=== PATIENT | female | born 1950 | race Caucasian/White ===

== ENCOUNTER 2023-05-24 01:05 | Day surgery (SDC) | payer MEDICARE, SELFPAY ==
[2023-05-15 14:19] VITALS: BMI 23.4
--- NOTE | 2023-05-15 14:26 | PC.NURSE ---
Report to the Outpatient Waiting Room, entrance under the green pavilion located off [facility], at time 1215 on date 05/24/23. Planned Procedure Time: 1415. Time changes happen often and if your time is changed the preop area will call you the afternoon before. - You and your visitor will be asked to self-screen and do not enter if you have any COVID symptoms. - A mask is optional within the hospital at this time. Patients may have clear liquids (water, carbonated beverages, clear teas, apple juice) until 3 hours prior to surgery with a maximum of 20 ounces. - No food from midnight until time of surgery Take the following medications with a SIP of water the morning of surgery: NONE DO NOT STOP ANY OF YOUR OTHER PRESCRIPTION MEDICATIONS PRIOR TO SURGERY ?EXCEPT THE FOLLOWING Medications to discontinue per physician: VITAMINS Date to take last dose: 05/20/23 Please no make-up, nail montenegrin, hairspray, perfume, deodorant, or body powder the day of surgery. No jewelry (including any body piercings) or valuables the day of surgery, leave them at home. Please take a shower or bath the night before, or the morning of, surgery with an antibacterial soap. Wear comfortable, loose fitting clothing. - Jewelry must be removed prior to entering the operating room. Rings and piercings that are not removed may be cut off. - The hospital will not accept responsibility for valuables. - Please leave all valuables, including medications, at home the day of surgery. If you are going home after surgery, a licensed short haul driver must drive you home. - NO public transportation without another adult if you receive anesthesia. - We recommend that an adult stay with you for 24 hours following discharge. - We also recommend that you do not drive, make important decision, drink alcoholic beverages, or take any drugs that were not prescribed by your health care provider for at least 24 hours after your discharge time. Follow any additional instructions given to you from your surgeon. If you or anyone in your household have experienced Covid symptoms in the past week, please notify your surgeon or the nurse liaison at the phone number below for possible testing. Telephone instructions given to PT - PAUL MUELLER and asked if any additional questions and then verbalized understanding. Patient advised to call surgeon office or pre surgery nurse liaison [phone] if any additional questions.
--- NOTE | 2023-05-24 07:33 | PM.IMHP ---
H&P: HPI History of Present Illness Date/Time: 05/24/23 07:33 Chief Complaint: Abnormal ultrasound finding. Narrative: Patient with episode of postmenopausal bleeding. Has atrophic vagina and some bleeding from pessary. She had ultrasound which showed thickened endometrial stripe a fibroid. Unable to obtain office biopsy. Recommend D and C hysteroscopy and removal of lesion if present. Review of Systems Review of Systems: All systems reviewed & are unremarkable except as noted in HPI and below Cardiovascular: Cardiovascular: Reports no additional cardiovascular complaints, Denies chest pain and Denies dyspnea Respiratory: Respiratory: Reports no additional respiratory complaints and Denies dyspnea Gastrointestinal: Gastrointestinal: Reports abdominal pain, Denies change in bowel habits, Denies diarrhea, Denies nausea and Denies vomiting Genitourinary: Genitourinary: Reports pelvic pain Musculoskeletal: Musculoskeletal: Reports back pain Integumentary/Breasts: Skin/Breast: Reports system reviewed and no additional complaints, except as docu Neurologic: Reports system reviewed and no additional complaints, except as documented PMFSH Past Medical History Medical History History of breast cancer Woody's granulomatosis Surgical History Surgical History H/O breast reconstruction H/O section H/O mastectomy History of colonoscopy with polypectomy 2019 01/23/23 History of foot surgery History of thumb surgery 08/07/21 left thumb joint replacement. Family History Family History Mother Hypertension Cerebrovascular accident Sibling Family history of malignant neoplasm of breast in first degree relative Social History Social History Smoking status: Never smoker Second hand tobacco smoke exposure: No Alcohol intake: never Substance use: never Substance use type: does not use Lack of Transportation: No Lack of Food: Never True Current Housing: I Have Housing Concerned About Future Housing: No Difficulty Paying Gas/Electric Bills: No Difficulty Paying for Meds: No Currently Unemployed: YES Education: Bachelor's Degree Living arrangements: alone Occupation/Education: retired Gender identity (if verbalized by the patient): Female Sexual Orientation (if Verbalized by the Patient): Straight or Heterosexual Spiritual care concerns: No Meds Home Medications and Allergies Home Medications Medication Instructions Recorded Confirmed Type cetirizine 10 mg capsule (Zyrtec) 10 mg PO DAILY PRN Allergy Symptoms 04/25/21 05/15/23 History cholecalciferol (vitamin D3) 25 25 mcg PO DAILY 04/25/21 05/15/23 History mcg (1,000 unit) capsule leucovorin calcium 10 mg tablet 10 mg PO WEEKLY 04/25/21 05/15/23 History methotrexate (PF) 15 mg/0.6 mL 15 mg subcut WEEKLY 04/25/21 05/15/23 History subcutaneous syringe [id number] 120 mcg-lutein 1 tablet PO DAILY 04/25/21 05/15/23 History 150 mcg-herb 37.5 mg chewable tablet (Alive Women's 50 Plus Gummy) oxyquinoline 0.025 %-sodium lauryl See Rx Instructions vaginal 08/02/22 05/15/23 Rx sulfate 0.01 % vaginal gel .COMPLEX #113.4 grams (Trimo-Esposito Jelly) pantoprazole 40 mg granules 40 mg PO DAILY 08/02/22 05/15/23 History delayed-release for susp in packet (Protonix) Allergies Allergy/AdvReac Type Severity Reaction Status Date / Time fluconazole Allergy Mild Hives Verified 05/15/23 14:17 ciprofloxacin Allergy Unknown lip Verified 05/15/23 14:17 swelling iodine Allergy Unknown Rash Verified 05/15/23 14:17 Exam Const: Orientation/consciousness: oriented to person and oriented to place HENMT: Head: normal to inspection Eyes: General: appearance normal, both eyes
[2023-05-24] MEDS: ACETAMINOPHEN 500 MG TABLET 1000 MG PO (09:00)
[2023-05-24] MEDS: LACTATED RINGERS 1,000 ML 30 ML IV CONT (09:00)
--- NOTE | 2023-05-24 09:19 | WPDHPUPDATE1 ---
History and Physical Update Update Date/Time: 05/24/23 09:19 History and Physical has been reviewed, including an updated exam of the patient. There are NO changes in the patient's condition. Risks, benefits, and alternatives have been discussed and questions answered. Patient agrees to proceed with procedure.
[2023-05-24 09:25] VITALS: BP 160/83; PULSE 76; RESP 14; TEMP 37; O2SAT 99
--- NOTE | 2023-05-24 09:32 | WPDANESEPPF ---
Anes - Initial Pre Proc Eval Procedure: Operation Date: 05/24/23 09:45 Proposed Procedures p Hysteroscopy Dilation and Curettage with Removal of any Endometrial Lesions if Necessary - Bryant Moseley MD Date/Time: 05/24/23 09:32 Surgeon: Bryant Moseley MD Pre Op Diagnosis: thickened endometrial stripe Patient Data Age: 72 Gender: F Height: 1.57 m Weight: 56.6 kg Last Vital Signs Temp 37.0 C 05/24/23 09:25 Pulse 76 05/24/23 09:25 Resp 14 05/24/23 09:25 BP 160/83 H 05/24/23 09:25 Pulse Ox 99 05/24/23 09:25 O2 Del Method Room Air 05/24/23 09:25 Allergies Allergy/AdvReac Type Severity Reaction Status Date / Time fluconazole Allergy Mild Hives Verified 05/24/23 09:20 ciprofloxacin Allergy Unknown lip Verified 05/24/23 09:20 swelling iodine Allergy Unknown Rash Verified 05/24/23 09:20 Home Medications Medication Instructions Recorded Confirmed Type cetirizine 10 mg capsule (Zyrtec) 10 mg PO DAILY PRN Allergy Symptoms 04/25/21 05/15/23 History cholecalciferol (vitamin D3) 25 25 mcg PO DAILY 04/25/21 05/15/23 History mcg (1,000 unit) capsule leucovorin calcium 10 mg tablet 10 mg PO WEEKLY 04/25/21 05/15/23 History methotrexate (PF) 15 mg/0.6 mL 15 mg subcut WEEKLY 04/25/21 05/15/23 History subcutaneous syringe [id number] 120 mcg-lutein 1 tablet PO DAILY 04/25/21 05/15/23 History 150 mcg-herb 37.5 mg chewable tablet (Alive Women's 50 Plus Gummy) oxyquinoline 0.025 %-sodium lauryl See Rx Instructions vaginal 08/02/22 05/15/23 Rx sulfate 0.01 % vaginal gel .COMPLEX #113.4 grams (Trimo-Esposito Jelly) pantoprazole 40 mg granules 40 mg PO DAILY 08/02/22 05/15/23 History delayed-release for susp in packet (Protonix) Patient hx anesthesia problems: none Family hx anesthesia problems: post op nausea/vomiting Results Review: All pre-operative results and documents have been reviewed as part of the pre-operative evaluation. ON LICENSE OF [facility] Past Medical History Medical History History of breast cancer Woody's granulomatosis Surgical History Surgical History H/O breast reconstruction H/O section H/O mastectomy History of colonoscopy with polypectomy 2019 01/23/23 History of foot surgery History of thumb surgery 08/07/21 left thumb joint replacement. Family History Family History Mother Hypertension Cerebrovascular accident Sibling Family history of malignant neoplasm of breast in first degree relative Social History Social History Smoking status: Never smoker Second hand tobacco smoke exposure: No Alcohol intake: never Substance use: never Substance use type: does not use Lack of Transportation: No Lack of Food: Never True Current Housing: I Have Housing Concerned About Future Housing: No Difficulty Paying Gas/Electric Bills: No Difficulty Paying for Meds: No Currently Unemployed: YES Education: Bachelor's Degree Living arrangements: alone Occupation/Education: retired Gender identity (if verbalized by the patient): Female Sexual Orientation (if Verbalized by the Patient): Straight or Heterosexual Spiritual care concerns: No Anes - Eval Final PreProcedure Day of Procedure 05/24/23 09:32 Patient weight: normal Heart: regular rate and rhythm Lungs: clear to auscultation Airway: Mallampati scale class II Neurological: alert and oriented Last oral intake: >/= 8 hours ASA classification: III Emergent: no Anesthesia type and monitoring: general GIVS and standard monitoring Results Review: All pre-operative results and documents have been reviewed as part of the pre-operative evaluation. Informed Consent: The patient's anesthetic plan and its attendan
[2023-05-24] MEDS: ceFAZolin 2 GM/D5W 50 ML 2 GM/50 ML BAG IVPB (09:38)
[2023-05-24] MEDS: LIDOCAINE HCL 1% LOCAL INJ 20 ML VIAL 10 ML INFILTRATE (09:55)
[2023-05-24 10:01] VITALS: BP 137/72; PULSE 70; RESP 16; O2SAT 100
--- NOTE | 2023-05-24 10:06 | W.PM.PROC2 ---
Procedure Note - Detailed Date of Procedure 05/24/23 Pre-op Diagnosis thickened endometrial stripe Post-op Diagnosis Same Procedure Performed Diagnostic hysteroscopy and dilation and curettage and biopsy of endometrial tissue with Aveta. Surgeon Bryant Moseley MD Anesthesia MAC and Local Indications Postmenopausal bleeding thickened endometrial stripe Findings Uterus sounded to 5 cm. The uterine cavity was an area posterior uterine cavity that appeared slightly thickened hyperpigmented and some calcified areas. These areas were removed with the instrument. There was minimal tissue with curettage. Description of Procedure After informed consent was obtained patient was taken to the operating room and adequate IV sedation was administered she was placed in low lithotomy position and prepped and draped in sterile fashion attention was turned to the vagina the large cystocele was retracted with a Sandoval retractor the cervix was visualized and anterior cervix grasped with tenaculum. The ring forceps was placed on the posterior cervix. The cervix easily presented near the introitus. The uterus was sounded to 5 cm. Using hydrodilation with the hysteroscope the hysteroscope was inserted into the cavity the findings per above. The Aveta instrument was then used to remove the little areas of hyperpigmentation at the posterior uterus most of it felt calcified. Next a curettage was performed minimal tissue obtained. Tenaculum was removed hemostasis was noted. At the posterior vaginal at the cervicovaginal interface where the posterior portion of graves speculum was inserted, there was there was some bleeding which resolved with pressure. Estimated Blood Loss 5 Drains No Packing No Pathology Yes (Aveta shavings and endometrial curettings minimal) Complications No immediate complications Condition Stable Disposition Same day [facility] Billing Surgery - Charge Forward: Surgery Billing
[2023-05-24 10:30] VITALS: BP 139/77; PULSE 70; RESP 16
== END 2023-05-24 10:58 | disposition home or self-care (01) ==
PROVIDERS: Visit Provider Obstetrics & Gynecology
PROC: 0U5B8ZZ Destruction of Endometrium, Via Natural or Artificial Opening Endoscopic (ICD-10-PCS; CPT 58563; principal; 2023-05-24 09:45)
DX: N84.0 Polyp of corpus uteri (principal); N95.0 Postmenopausal bleeding; M31.30 Wegener's granulomatosis without renal involvement; Z85.3 Personal history of malignant neoplasm of breast; Z79.631 Long term (current) use of antimetabolite agent
CPT/HCPCS: 58558; 88305; A9270; J0690; J1100; J2405; J2704; J3010; J7120